=== PATIENT | female | born 1960 | race Caucasian/White ===

== ENCOUNTER 2020-11-13 06:20 | Observation (INO) | payer BC, MEDICARE ==
[~2020-11-13] VITALS: Ht 160 cm; Wt 61.4 kg
[2020-11-13] MEDS ORDERED: SODIUM CHLORIDE FLUSH 10ML SYR IVF ONE (07:00)
[2020-11-13] MEDS ORDERED: ASPIRIN 81 MG TABLET CHEW PO ONE (07:00)
[2020-11-13] MEDS ORDERED: NITROGLYCERIN SINGLE TAB 0.4 MG SL PRN (07:00)
--- NOTE | 2020-11-13 07:05 | NUR ---
RECEIVED REPORT FROM LUDMILA SPENCE. PT UPRIGHT ON GURNEY AWAKE & CALM, RESPONDS APPROP TO STAFF, NAD, COMFORT MEASURES PROVIDED, AT BS, CALL LIGHT WITHIN REACH.
[2020-11-13] MEDS ORDERED: NITROGLYCERIN SINGLE TAB 0.4 MG SL ONE (07:13)
[2020-11-13] MEDS ORDERED: ASPIRIN 81 MG TABLET CHEW ONE (07:14)
[2020-11-13 07:22] LABS: BASOPHILS % (AUTO) 1 % (0-1); EOSINOPHILS % (AUTO) 3 % (1-7); LYMPHOCYTES % (AUTO) 22 % (22-44); MEAN CORPUSCULAR HGB CONC 33.2 g/dL (32.4-35.8); MEAN PLATELET VOLUME 10.2 fL (7.4-10.4); MONOCYTES % (AUTO) 5 % (2-9); NEUTROPHILS % (AUTO) 69 % (42-75); PLATELET COUNT 135 x10^3/uL (130-400); RED BLOOD COUNT 4.14 x10^6/uL (3.82-5.3); RED CELL DISTRIBUTION WIDTH 14.8 % (9.6-15.2)
[2020-11-13 07:31] LABS: ALANINE AMINOTRANSFERASE 13 U/L (12-78); ALBUMIN 3.2 g/dL (3.4-5.0); ANION GAP 4 mmol/L (5-15); CALCIUM 8.9 mg/dL (8.5-10.1); CHLORIDE 109 mmol/L (98-107); CREATININE 0.64 mg/dL (0.55-1.02)
[2020-11-13 07:35] LABS: ALKALINE PHOSPHATASE 78 U/L (45-117); BILIRUBIN,TOTAL 0.3 mg/dL (0.2-1.0)
[2020-11-13 07:49] LABS: TROPONIN I 0.206 ng/mL (0.000-0.045)
--- NOTE | 2020-11-13 08:01 | NUR ---
PT REMAINS UPRIGHT ON GURNEY AWAKE & COMFORTABLE, RESPONDS APPROP TO STAFF, NAD & REPORTS 0/10 CHEST PAIN AFTER NTG X1- ERP AWARE, NO NEEDS AT THIS TIME, AT BS, CALL LIGHT WITHIN REACH.
[2020-11-13] MEDS ORDERED: ONDANSETRON 2MG/ML, 2ML IVPush PRN (09:30)
[2020-11-13] MEDS ORDERED: POLYETHYLENE GLYCOL 17 GM PACKET PO PRN (09:30)
[2020-11-13] MEDS ORDERED: OXYcodone IR 5MG TABLET PO PRN (09:30)
[2020-11-13] MEDS ORDERED: morphine SULFATE 10 MG/ML, 1ML IVPush PRN (09:30)
[2020-11-13] MEDS ORDERED: ACETAMINOPHEN 325 MG TABLET PO PRN (09:30)
[2020-11-13] MEDS ORDERED: SENNA/DOCUSATE TABLET PO PRN (09:30)
[2020-11-13] MEDS ORDERED: ONDANSETRON ODT 4 MG PO PRN (09:30)
[2020-11-13 09:50] VITALS: BP 129/67
[2020-11-13] MEDS: ENOXAPARIN 40 MG/0.4 ML SQ SCH (10:39)
[2020-11-13] MEDS: METOPROLOL TARTRATE 25 MG TAB PO SCH ×2 (10:39→21:00)
[2020-11-13] MEDS ORDERED: METO25TA91 PO (13:15)
[2020-11-13] MEDS ORDERED: ARIP15TA PO (13:15)
[2020-11-13] MEDS ORDERED: LEVO50CA4 PO (13:15)
[2020-11-13] MEDS ORDERED: LOVA40TA2 PO (13:15)
[2020-11-13] MEDS ORDERED: PANT40GR PO (13:15)
[2020-11-13] MEDS ORDERED: ESCI20TA8 PO (13:15)
[2020-11-13] MEDS ORDERED: NIFE-6 PO (13:15)
[2020-11-13] MEDS ORDERED: MYCO500T PO (13:15)
[2020-11-13] MEDS ORDERED: METH20CP PO (13:15)
[2020-11-13 13:21] LABS: TROPONIN I 0.322 ng/mL (0.000-0.045)
[2020-11-13 13:29] VITALS: BP 129/67
[2020-11-13 16:00] VITALS: BP 127/71
[2020-11-13 16:14] VITALS: BP 127/71
[2020-11-13 19:32] LABS: TROPONIN I 0.187 ng/mL (0.000-0.045)
[2020-11-13] MEDS ORDERED: OXYC5CAP2 PO (20:08)
[2020-11-13 20:09] VITALS: BP 142/62
[2020-11-13] MEDS ORDERED: LIDODERM 5% PATCH TD SCH (20:30)
[2020-11-13] MEDS ORDERED: LIDODERM REMOVE PATCH NOTE XX SCH (20:30)
[2020-11-13] MEDS ORDERED: ATORVASTATIN 40 MG TABLET PO SCH (21:00)
[2020-11-13 23:42] VITALS: BP 129/68
[2020-11-13] MEDS ORDERED: OMNIPAQUE 350 MG/ML, 75ML BOTTLE ONE (23:43)
[2020-11-14 05:52] LABS: BASOPHILS % (AUTO) 1 % (0-1); EOSINOPHILS % (AUTO) 4 % (1-7); LYMPHOCYTES % (AUTO) 37 % (22-44); MEAN CORPUSCULAR HEMOGLOBIN 28.6 pg (27.0-34.8); MEAN CORPUSCULAR HGB CONC 33.3 g/dL (32.4-35.8); MEAN PLATELET VOLUME 10.4 fL (7.4-10.4); MONOCYTES % (AUTO) 7 % (2-9); NEUTROPHILS % (AUTO) 52 % (42-75); PLATELET COUNT 128 x10^3/uL (130-400); RED BLOOD COUNT 4.18 x10^6/uL (3.82-5.3); RED CELL DISTRIBUTION WIDTH 14.6 % (9.6-15.2)
[2020-11-14 05:57] LABS: ALBUMIN 3.4 g/dL (3.4-5.0); ANION GAP 6 mmol/L (5-15); CALCIUM 8.9 mg/dL (8.5-10.1); CHLORIDE 107 mmol/L (98-107)
[2020-11-14 06:00] LABS: ALANINE AMINOTRANSFERASE 11 U/L (12-78); ALKALINE PHOSPHATASE 84 U/L (45-117); BILIRUBIN,TOTAL 0.6 mg/dL (0.2-1.0); CHOL/HDL RATIO 2.6; CHOLESTEROL, TOTAL 152 mg/dL (140-239); CREATININE 0.56 mg/dL (0.55-1.02); HDL CHOL % 39 % (28-40); HDL CHOLESTEROL (DIRECT) 59 mg/dL (40-60); LDL CHOLESTEROL,CALCULATED 65 mg/dL (54-169); LDL/HDL RATIO 1.1 (0.5-3.0); TRIGLYCERIDES 140 mg/dL (50-200); VLDL CHOLESTEROL 28 mg/dL (0-25)
[2020-11-14] MEDS ORDERED: ASPIRIN 81 MG TABLET EC PO SCH (06:00)
[2020-11-14 07:54] VITALS: BP 143/77
[2020-11-14] MEDS ORDERED: REGADENOSON 0.4 MG/5 ML SYRINGE ONE (08:32)
[2020-11-14] MEDS: ENOXAPARIN 40 MG/0.4 ML SQ SCH (09:16)
[2020-11-14] MEDS: METOPROLOL TARTRATE 25 MG TAB PO SCH (09:16)
[2020-11-14 12:49] VITALS: BP 140/63
== END 2020-11-14 15:13 | disposition home or self-care (01) ==
LOC: ED 08:45 → INTOOBSV 10:29 → 5SO 10:29
PROVIDERS: ADMIT Internal Medicine; ATTEND Family Medicine
DX: I21.4 Non-ST elevation (NSTEMI) myocardial infarction (principal); R07.89 Other chest pain; J44.9 Chronic obstructive pulmonary disease, unspecified; I50.9 Heart failure, unspecified; I49.3 Ventricular premature depolarization; I25.2 Old myocardial infarction; M32.9 Systemic lupus erythematosus, unspecified; E78.5 Hyperlipidemia, unspecified; E03.9 Hypothyroidism, unspecified; F32.9 Major depressive disorder, single episode, unspecified; F90.9 Attention-deficit hyperactivity disorder, unspecified type; Z87.891 Personal history of nicotine dependence; Z90.710 Acquired absence of both cervix and uterus; Z79.899 Other long term (current) drug therapy
CPT/HCPCS: 36415; 71045; 71275; 78452; 80053; 80061; 83036; 84443; 84484; 85025; 85379; 93005; 93017; 93306; 96372; 99291; A9502; G0378; J1650; J2785; Q9967